=== PATIENT | female | born 1980 | race Caucasian/White ===

== ENCOUNTER 2018-04-23 12:57 | Inpatient (IN) | payer MEDICAID, OTHER ==
[~2018-04-23] VITALS: Ht 182.9 cm; Wt 76.2 kg
--- NOTE | 2018-04-23 12:57 | NUR ---
PT BIBA ALS TO BED 10
--- NOTE | 2018-04-23 13:00 | NUR ---
PT. BIB ALS DUE TO SEIZURE X 2 FROM HOME. PER REPORT FROM ALS CREW "UPON ARRIVAL TO HOME PT WAS POSTICTAL AAOX1 AND UPON TRANSPORTING TO AMBULANCE SHE HAD ANOTHER SEIZURE THAT LASTED 40 SEC". UPON ARRIVAL PT HAS HR: 135. RR EVEN AND UNLABORED R EG 18 G ESTABLISHED EN ROUTE TO HOSPITAL. PT. DOES NOT RESPOND TO PAINFUL STIMULI, NYSTAGMUS VERTICAL NOTED TO BILATERAL EYES. RR EVEN AND UNLABORED. PALE AND WARM TO TOUCH, PRANEETH CATH NOTED TO R SIDE OF CHEST, PER REPORT " CHEMOTHERAPY WAS STOPPED 3 WEEKS AGO DUE TO IT BEING INNEFECTIVE". FAMILY MEMBER STATES " SHE HAS BEEN HAVING SEIZURES ON AND OFF FOR ABOUT A COUPLE OF WEEKS NOW". SEIZURE PRECAUTIONS IMPLEMENTED, SAFETY PRECAUTIONS IMPLEMENTED. BED IN LOWEST POSITION. ER MD NOTIFIED. WILL CONTINUE TO MONITOR.
[2018-04-23 13:01] VITALS: BP 169/110
[2018-04-23] MEDS ORDERED: NACL 0.9% 1,000 ML IV SCH ×2 (13:04→19:30)
[2018-04-23] MEDS ORDERED: LORazepam 2 MG/ML VIAL IVP ONE (13:05)
[2018-04-23] MEDS ORDERED: DEXTROSE 50% 50 ML SYR IVP ONE (13:05)
[2018-04-23] MEDS ORDERED: IPRATROPIUM 0.02% 0.5 MG/2.5 ML NEBU INH ONE (13:10)
[2018-04-23] MEDS ORDERED: ALBUTEROL 0.083% 2.5 MG/3 ML NEBU INH ONE (13:10)
[2018-04-23] MEDS ORDERED: MAG SULF 2000 MG/WATER PREMIX 50 ML IV ONE (13:10)
[2018-04-23] MEDS ORDERED: methylPREDNISolone SS 125 MG/2 ML VIAL IVP ONE (13:10)
[2018-04-23] MEDS ORDERED: LORazepam 2 MG/ML VIAL ONE (13:14)
--- NOTE | 2018-04-23 13:24 | NUR ---
ADMITTING DX: SEEKING MEDICAL ATTENTION LOC NON RESPONSIVE DR ARSENIO VALERIO ADVISED OF CARDIAC STATUS OF 139-142 BPM PER OK TO GIVE HHN THERAPY ORDERED
--- NOTE | 2018-04-23 13:40 | NUR ---
RT AT BEDSIDE AT THIS TIME.
[2018-04-23] MEDS ORDERED: VITB12 PO (13:42)
[2018-04-23] MEDS ORDERED: DEC4 PO (13:42)
[2018-04-23] MEDS ORDERED: VITA1TAB44 PO (13:42)
[2018-04-23] MEDS ORDERED: BUS5 PO (13:42)
[2018-04-23] MEDS ORDERED: HYDR2TAB6 PO (13:42)
[2018-04-23] MEDS ORDERED: ATI.5 PO (13:42)
[2018-04-23] MEDS ORDERED: BUPR300T70 PO (13:42)
[2018-04-23 13:49] LABS: BASOPHILS % (AUTO) 0.1 % (0.0-2.0); HEMATOCRIT 30.4 % (36-48); LYMPHOCYTES # (AUTO) 0.3 K/uL (2.5-16.5); LYMPHOCYTES % (AUTO) 4.1 % (20.5-51.1); MEAN CORPUSCULAR HEMOGLOBIN 30 pg (27-31); MEAN CORPUSCULAR HGB CONC 33 g/dL (33-37); MEAN CORPUSCULAR VOLUME 91.6 fL (80-94); MONOCYTES # (AUTO) 0.4 K/uL (0.8-1.0); NEUTROPHILS # (AUTO) 5.7 K/uL (1.8-7.7); NEUTROPHILS % (AUTO) 88.8 % (42.2-75.2); PLATELET COUNT (AUTO) 294 K/uL (140-450); RED BLOOD CELL COUNT(AUTO) 3.32 MIL/uL (4.20-5.40); RED CELL DISTRIBUTION WIDTH 19.1 % (11.6-13.7); WHITE BLOOD COUNT (AUTO) 6.4 K/uL (4.8-10.8)
[2018-04-23 14:06] LABS: PROTHROMBIN TIME 11.3 secs (10.8-13.4)
[2018-04-23 14:11] LABS: ALBUMIN 2.9 g/dL (3.4-5.0); ANION GAP 13.1 (8-16); CARBON DIOXIDE 28.9 mmol/L (21-32); CREATININE 0.8 mg/dL (0.6-1.3); TOTAL BILIRUBIN 0.8 mg/dL (0.0-1.0)
--- NOTE | 2018-04-23 14:15 | NUR ---
PT. HAS RECTAL TEMP OF 100.5 . ER MD VALERIO NOTIFIED. ORDERS FOR 650MG SUPP. WILL CONTINUE TO MONITOR.
--- NOTE | 2018-04-23 14:20 | NUR ---
JE FROM LAB CALLED TO REPORT LACTIC ACID : [id number]. ER MD VALERIO NOTIFIED. NO FURTHER ORDERS AT THIS TIME.
[2018-04-23] MEDS ORDERED: ACETAMINOPHEN 650 MG SUPP RC ONE ×2 (14:22→14:25)
[2018-04-23 14:31] LABS: MAGNESIUM 1.2 mg/dL (1.8-2.4)
[2018-04-23 14:35] LABS: ACETONE, SERUM NEGATIVE (NEGATIVE)
--- NOTE | 2018-04-23 14:42 | NUR ---
REVIEWED BIPNICOL SINGH WITH DR ARSENIO VALERIO PER MD PATIENT OK NOW PLACE BIPAP ON HOLD
--- NOTE | 2018-04-23 14:46 | NUR ---
PT. FAMILY MEMBER AT BEDSIDE AT THIS TIME, RR EVEN AND UNLABORED. BED IN LOWEST POSITION. WILL CONTINUE TO MONITOR.
--- NOTE | 2018-04-23 14:48 | NUR ---
B/P 168/[address] VALERIO; NO FURTHER ORDERS AT THIS TIME.
--- NOTE | 2018-04-23 15:10 | NUR ---
CALLED FOR CT SCAN . TECH STATED " I SHOULD BE THERE WITHIN 10 MIN". ER MD VALERIO NOTIFIED.
--- NOTE | 2018-04-23 15:28 | NUR ---
AT THIS TIME VOCATIONAL TRAINING TEACHER HAS NOT TAKEN PATIENT FOR SCAN, CALLED AND TECH SAID " I JUST GOT BACK I WILL BE THERE IN 2 MIN ".
--- NOTE | 2018-04-23 15:38 | NUR ---
PT TAKEN TO CT IN [place]
--- NOTE | 2018-04-23 15:54 | NUR ---
PT RETURNED FROM CT
[2018-04-23 16:17] LABS: APPEARANCE,URINE CLOUDY (CLEAR); BILIRUBIN,URINE 2+ (NEGATIVE); BLOOD, URINE 3+ (NEGATIVE); COLOR,URINE YELLOW (YELLOW); LEUKOCYTE ESTERASE ,URINE 2+ (NEGATIVE); NITRITE, URINE NEGATIVE (NEGATIVE); PH,URINE 5.5 (5.0-9.0); UGLUCOSE NEGATIVE (NEGATIVE)
--- NOTE | 2018-04-23 16:21 | NUR ---
RECTAL TEMP OF 101.3, ER MD VALERIO NOTIFIED. NO ORDERS RECIEVED AT THIS TIME.
[2018-04-23 16:38] LABS: RBC,URINE 0-5 (RARE) /HPF (0-5); URINE AMORPHOUS URATE 3+ /HPF (None Seen); WBC,URINE 0-5 (RARE) /HPF (0-5)
[2018-04-23] MEDS ORDERED: DEXAMETHASONE 10 MG/ML VIAL IVP ONE (16:45)
[2018-04-23] MEDS ORDERED: FAMOTIDINE 20 MG/2 ML VIAL IVP ONE (16:45)
--- NOTE | 2018-04-23 17:53 | NUR ---
PT. RESTING COMFORTABLY IN BED, RR EVEN AND UNLABORED. FAMILY AT BEDSIDE. WILL CONTINUE TO MONITOR.
--- NOTE | 2018-04-23 18:35 | NUR ---
RECTAL TEMP OF 100.6. PT RESTING IN BED, BECOMING MORE ALERT. [facility] WILL CONTINUE TO MONITOR. SEIZURE PRECAUTIONS IN PLACE.
--- NOTE | 2018-04-23 19:07 | NUR ---
REPORT RECIEVED FROM SAAD COLON AT THIS TIME. PT IN STABLE CONDITION
[2018-04-23] MEDS ORDERED: LORazepam 2 MG/ML VIAL IVP PRN (19:30)
[2018-04-23] MEDS ORDERED: ACETAMINOPHEN 325 MG TAB PO PRN (19:30)
[2018-04-23] MEDS ORDERED: HYDROcodone/APAP 5/325 MG 1 TAB TAB PO PRN (19:30)
[2018-04-23] MEDS ORDERED: DOCUSATE SODIUM 100 MG GELCAP PO PRN (19:30)
[2018-04-23] MEDS ORDERED: ONDANSETRON 4 MG/2 ML VIAL IM/IVP PRN (19:30)
[2018-04-23] MEDS ORDERED: KETOROLAC 15 MG/ML VIAL IVP PRN (19:30)
[2018-04-23] MEDS ORDERED: POTASSIUM CHLORIDE 20% 40 MEQ/15 ML UDC PO ONE (19:40)
[2018-04-23] MEDS ORDERED: HYDROmorphone 2 MG TAB PO PRN (19:40)
--- NOTE | 2018-04-23 20:02 | NUR ---
Patient will be admitted to care of DR. ANDERSEN. Admited to TELE. Will go to room 123 A. Belongings list completed. Report to STEPHANIE COLON.
[2018-04-23 20:18] LABS: BARBITURATE, URINE NEG. ng/ml (NEG <=200); BENZODIAZEPINE, URINE NEG. ng/mL (NEG <=200); CANNABINOID, URINE NEG. ng/mL (NEG <=50); COCAINE, URINE NEG. ng/mL (NEG <=300); OPIATE, URINE NEG. ng/mL (NEG <=2000); PHENCYCLIDINE SCREEN,URINE NEG. ng/mL (NEG <=25)
[2018-04-23 20:19] LABS: PHOSPHORUS 2.6 mg/dL (2.5-4.9); THYROID STIMULATING HORMONE 1.08 uIU/mL (0.34-3.74)
--- NOTE | 2018-04-23 20:30 | NUR ---
ADMITTED PT AT THIS TIME FROM ER. RECEIVED REPORT AT PT'S BEDSIDE FROM ER NURSE. PT TRANSFERRED FROM [facility] TO BED WITH 2-PERSON EXTENSIVE ASSIST. PT LETHARGIC UPON ARRIVAL, ABLE TO FOLLOW ONE-STEP INSTRUCTIONS WITH DELAYED RESPONSE, NODS HEAD YES/NO. HX OBTAINED FROM MEDICAL RECORDS D/T PT LETHARGY. PT ORIENTED TO ROOM & UNIT, ABLE TO NOD YES/NO. FALL & SEIZURE PRECAUTIONS INITIATED. CALL LIGHT PLACED WITHIN REACH.
[2018-04-23 21:00] VITALS: BP 158/97
[2018-04-23] MEDS: busPIRone 5 MG TAB PO SCH (22:30)
[2018-04-23] MEDS ORDERED: cefTRIAXone 1,000 MG VIAL ONE (22:41)
--- NOTE | 2018-04-23 22:55 | NUR ---
PRE-MIXED ROCEPHIN WITH D5W UNAVAILABLE. ROCEPHIN VIAL OBTAINED BY CHARGE NURSE, MIXED WITH 50ML D5W, & ADMINISTERED TO PT VIA IV.
[2018-04-23] MEDS: LORazepam 0.5 MG TAB PO SCH (23:50)
[2018-04-24] VITALS: BP 171/101
--- NOTE | 2018-04-24 | NUR ---
DR. SHINE NOTIFIED OF ELEVATED BP. PER MD, POSSIBLY R/T TO PAIN. PT NOTED TO BE GRIMACING WITH MOVEMENT, BUT SHAKES HEAD "NO" WHEN ASKED IF SHE HAS PAIN. PT AGREE TO RECEIVE IV MORPHINE. FAMILY VISITING AT BEDSIDE.
[2018-04-24] MEDS: MORPHINE SULFATE 2 MG/ML SYR IVP PRN ×2 (00:52→11:53)
--- NOTE | 2018-04-24 01:00 | NUR ---
REASSESSED BP. BP CURRENTLY 158/82, P94. PT LETHARGIC, ABLE TO NOD YES/NO. NO SIGNS OF DISTRESS. CALL LIGHT WITHIN REACH.
[2018-04-24] MEDS: POTASSIUM CHL 20MEQ/D5-NS 1,000 ML IV SCH ×2 (02:32→14:49)
[2018-04-24 04:00] VITALS: BP 153/93
--- NOTE | 2018-04-24 05:10 | NUR ---
PT PULLED OUT RT EJ IV SITE. CATH INTACT. DR SHINE NOTIFIED. PER STACIA FROST TO USE RT CHEST PORT-A-CATH FOR IVF & IV MEDS. RESUMED IV INFUSION OF K20MEQ IN D5NS TO PORT-A-CATH. EDUCATED PT NOT TO PULL ON IV. PT VERBALIZED UNDERSTANDING. WILL CONTINUE TO MONITOR. Addendum: 04/24/18 at 0553 by Vannesa Thomas RN PT TRANSFERRED TO [facility] FOR BED ALARM. PT AGREE. ABLE TO AMB FROM BED TO BED WITH STANDBY ASSIST.
[2018-04-24] MEDS: LORazepam 0.5 MG TAB PO SCH ×4 (05:13→23:39)
[2018-04-24 06:35] LABS: BASOPHILS % (AUTO) 0.1 % (0.0-2.0); HEMATOCRIT 27.7 % (36-48); HEMOGLOBIN 9.4 g/dL (12.0-16.0); LYMPHOCYTES # (AUTO) 0.3 K/uL (2.5-16.5); LYMPHOCYTES % (AUTO) 4.3 % (20.5-51.1); MEAN CORPUSCULAR HEMOGLOBIN 31 pg (27-31); MEAN CORPUSCULAR HGB CONC 34 g/dL (33-37); MEAN CORPUSCULAR VOLUME 90.9 fL (80-94); MONOCYTES # (AUTO) 0.7 K/uL (0.8-1.0); MONOCYTES % (AUTO) 10.6 % (1.7-9.3); NEUTROPHILS # (AUTO) 5.8 K/uL (1.8-7.7); PLATELET COUNT (AUTO) 262 K/uL (140-450); RED BLOOD CELL COUNT(AUTO) 3.04 MIL/uL (4.20-5.40); RED CELL DISTRIBUTION WIDTH 19.4 % (11.6-13.7); WHITE BLOOD COUNT (AUTO) 6.8 K/uL (4.8-10.8)
--- NOTE | 2018-04-24 07:25 | NUR ---
REPORT GIVEN AT BEDSIDE TO AM SHIFT NURSE.
[2018-04-24 07:39] LABS: ANION GAP 13.5 (8-16); CARBON DIOXIDE 26.2 mmol/L (21-32); CREATININE 0.6 mg/dL (0.6-1.3); POTASSIUM 3.7 mmol/L (3.5-5.1)
[2018-04-24 07:44] LABS: CHOL/HDL RATIO 2.5 (1-4.5); MAGNESIUM 1.7 mg/dL (1.8-2.4); PHOSPHORUS 1.7 mg/dL (2.5-4.9)
--- NOTE | 2018-04-24 07:45 | NUR ---
PATIENT AWAKE, CONFUSED, NOT KNOWING WHY OR WHERE PATIENT IS. PATIENT WAS ORIENTED TO ROOM, AND STAFF. RESPIRATION EVEN, UNLABOR ON ROOM AIR. SKIN DRY AND WARM. MEDIPORT PATENT AND INTACT. MATTHEWS DRAINING DARK YELLOW URINE. PLAN OF CARE WAS DISCUSSED WITH PATIENT. BED AT LOW POSITIONS, SIDE RAILS UP. CALL LIGHT WITHIN REACH
[2018-04-24 08:00] VITALS: BP 159/97
[2018-04-24] MEDS: DEXAMETHASONE 4 MG TAB PO SCH (08:57)
[2018-04-24] MEDS: busPIRone 5 MG TAB PO SCH ×2 (08:57→20:36)
[2018-04-24] MEDS: LACTOBACILLUS RHAMNOSUS GG 1 EACH CAP PO SCH (08:58)
[2018-04-24] MEDS ORDERED: METOPROLOL 25 MG TAB PO SCH (09:00)
--- NOTE | 2018-04-24 09:15 | NUR ---
PATIENT HAS BEEN SCREENED AND CATEGORIZED HIGH NUTRITION RISK. PATIENT WILL BE SEEN WITHIN 1-2 DAYS OF ADMISSION. 04/24/18 04/25/[address]
--- NOTE | 2018-04-24 09:15 | NUR ---
PATIENT AWAKE, CONFUSED. RESPIRATION EVEN, UNLABOR ON ROOM AIR. NO DISTRESS NOTED. CALL LIGHT WITHIN REACH
--- NOTE | 2018-04-24 10:57 | NUR ---
CM NOTE ADMISSION CHART REVIEW DONE. INITIAL REVIEW AND ORDER TO TRANSFER TO [facility] FAXED TO [facility] [phone] PH# [phone] AND TO [facility] [phone] JONATHAN PH# [phone]. Addendum: 04/24/18 at 1125 by Mabel Baron CM LEFT VM TO [facility] DANIELLE GREENFIELD PH# [phone] AND TO [facility] CASTILLO [phone] REGARDING TRANSFER ORDER
--- NOTE | 2018-04-24 11:00 | NUR ---
DR. THOMAS WAS MADE AWARE OF PATIENT'S PHOS 1.7, AND MAG 1.7, WILL MEDICATE PER ORDER.
[2018-04-24 12:00] VITALS: BP 160/86
--- NOTE | 2018-04-24 12:00 | NUR ---
PATIENT AWAKE, STILL CONFUSED. RESPIRATION EVEN, UNLABOR ON ROOM AIR. VS IS STABLE. COMPLAINED OF GENERALIZED PAIN 7/10, WILL MEDICATE PER ORDER. PATIENT TRIED TO GET OUT OF BED TO GO URINATE, ORIENTED PATIENT THAT SHE HAS A MATTHEWS. PATIENT VERBALIZED UNDERSTANDING. BED ALARM ACTIVE. CALL LIGHT WITHIN REACH. FAMILY AT BEDSIDE
--- NOTE | 2018-04-24 13:00 | NUR ---
PATIENT ATTEMPTED TO GET OUT OF BED FOR BATHROOM. PATIENT WAS ASSISTED BY STAFF. PATIENT HAD UNSTEADY GAIT. EXPLAINED TO PATIENT THAT THE MATTHEWS IS IN PLACE, AND IT IS DRAINING WELL. INSTRUCTED PATIENT AND FAMILY TO CALL STAFF BEFORE GETTING OUT OF BED. BED ALARM IS ACTIVE. CALL LIGHT WITHIN REACH
--- NOTE | 2018-04-24 13:15 | NUR ---
8627 CALL PLACED TO [facility] [phone] AND SPOKE WITH OLESYA AT EXT [phone] REGARDING TRANSFER. OLESYA STATES SHE IS AWARE OF THE PATIENT AND WILL FAX OVER A FORM TO BE FILLED OUT WHICH WILL NEED TO INCLUDE AUTHORIZATION FROM [facility]. PER OLESYA CANNOT REQUEST A BED UNTIL AUTHORIZATION IS OBTAINED FROM [facility]. [facility] FAX [phone]
--- NOTE | 2018-04-24 13:21 | NUR ---
CM NOTE PER [facility] DANIELLE CASTILLO PH# [phone], SHE WILL WORK ON THE AUTHORIZATION FOR [facility] AND FAX IT TO THEM. SHE ALSO STATED THAT AUTHORIZATION FOR TRANSPORTATION GOING TO [facility] SHOULD COME FROM [facility]. LEFT VM TO [facility] DANIELLE GREENFIELD PH# [phone].
--- NOTE | 2018-04-24 13:30 | NUR ---
DR. THOMAS WAS MADE AWARE OF CRITICAL RESULT FOR VENOUS ULTRASOUND, AND PRESENCE OF BLOOD IN URINE. PHYSICIAN WILL BE SEEING PATIENT.
--- NOTE | 2018-04-24 14:02 | NUR ---
CM NOTE RECEIVED CALL FROM [facility] PH# [phone] STATING THAT FOR AMBULANCE MEDICAL TRANSPORT GOING TO [facility] TO CONTACT [facility]# [phone] AND NO PRIOR AUTHORIZATION IS NEEDED.
--- NOTE | 2018-04-24 14:28 | NUR ---
CM NOTE PER [facility] DANIELLE CASTILLO PH# [phone], SHE HAS ALREADY FAXED A COPY OF THE AUTHORIZATION TO [facility] FAX# [phone], REF# [id number].
--- NOTE | 2018-04-24 14:42 | NUR ---
1424 CLINICAL INFORMATION AND COPY OF AUTHORIZATION FROM [facility] FAXED TO HARJINDER SANTOS AT [facility]. PROVIDED THE DIRECT LINE TO THE NURSING UNIT [facility]. INFORMED PT THAT INFORMATION HAS BEEN FAXED AND AUTHORIZATION HAS BEEN OBTAINED AND TRANSFER WILL BE PENDING BED AVAILABILITY DR GODDARD HER ONCOLOGIST WAS CONTACTED LAST NIGHT BY ED AND HE INDICATED HE WOULD BE THE ACCEPTING PHYSICIAN,
--- NOTE | 2018-04-24 14:50 | NUR ---
PATIENT IS RESTING COMFORTABLY. RESPIRATION EVEN, UNLABOR ON ROOM AIR. NO DISTRESS NOTED AT THIS TIME. FAMILY AT BEDSIDE. CALL LIGHT WITHIN REACH
--- NOTE | 2018-04-24 15:50 | NUR ---
PATIENT AWAKE, ALERT. RESPIRATION EVEN, UNLABOR ON ROOM AIR. COMPLAINED OF GENERALIZED PAIN WHEN WALKING /10. VS IS STABLE. FAMILY AT BEDSIDE. CALL LIGHT WITHIN REACH
[2018-04-24 16:00] VITALS: BP 152/87
[2018-04-24] MEDS ORDERED: MAG SULF 2000 MG/WATER PREMIX 50 ML IV SCH (16:00)
[2018-04-24] MEDS ORDERED: SODIUM PHOS / POTASSIUM PHOS 1 PKT PDR PO SCH (16:00)
[2018-04-24] MEDS ORDERED: RIVA15TA1 PO (16:33)
[2018-04-24] MEDS ORDERED: METO25TA PO (16:33)
--- NOTE | 2018-04-24 16:50 | NUR ---
PATIENT COMPLAINED OF GENERALIZED PAIN THAT WAS NOT RELIEVED WITH DILAUDID. DR. THOMAS WAS MADE AWARE. WILL MEDICATE PER ORDER
[2018-04-24] MEDS ORDERED: HYDROmorphone 2 MG TAB PO SCH (17:04)
--- NOTE | 2018-04-24 17:55 | NUR ---
PATIENT AWAKE, ALERT. RESPIRATION EVEN, UNLABOR ON ROOM AIR. NO DISTRESS NOTED AT THIS TIME. MEDIPORT PATENT AND INTACT. FAMILY AT BEDSIDE. CALL LIGHT WITHIN REACH
--- NOTE | 2018-04-24 19:28 | NUR ---
RECEIVED REPORT FROM DAY SHIFT NURSE AT PT BEDSIDE. PT IN STABLE CONDITION. FAMILY IS AT BEDSIDE. PT IS A/O X4 SKIN IS INTACT. PT HAS PORT-A-CATH WITH IVF RUNNING PER MD ORDERS. PT IS C/O PAIN WILL MEDICATE. BED IS LOCKED, LOW POSITION AND SIDE RAILS UP X2. BOARD UPDATED. CALL LIGHT IS WITHIN REACH. WILL CONTINUE TO MONITOR PT.
--- NOTE | 2018-04-24 19:28 | NUR ---
ENDORSEMENT GIVEN TO THE SYNCHRONIZER NURSE. PATIENT IS STABLE AT THIS TIME
[2018-04-24 20:00] VITALS: BP 167/100
[2018-04-24] MEDS: RIVAROXABAN 15 MG TAB PO SCH (20:37)
[2018-04-24] MEDS: METOPROLOL 25 MG TAB PO SCH (20:38)
--- NOTE | 2018-04-24 20:41 | NUR ---
ADMINISTERED SCHEDULED MEDICATIONS. PT C/O PAIN DILAUDID GIVEN. ASSISTED PT OUT OF BED AND TO BATHROOM. PT TOLERATED WELL. WILL CONTINUE TO MONITOR.
--- NOTE | 2018-04-24 20:45 | NUR ---
EDUCATED PT AND PT FAMILY ON NOT ASSISTING PT OUT OF BED. IF PT NEEDS TO GET UP, INFORMED PT AND FAMILY, TO CALL FOR NURSE ASSISTANCE. VERBALIZED UNDERSTANDING. WILL CONTINUE TO MONITOR.
[2018-04-24] MEDS ORDERED: HYDROmorphone 2 MG TAB PO PRN (21:00)
--- NOTE | 2018-04-24 22:00 | NUR ---
PT REQUESTED HEATING PAD FOR ABDOMEN. PER MD ORDERS, HEATING PAD PLACED ON PT ABDOMEN. PT TOLERATING WELL. WILL CONTINUE TO MONITOR.
[2018-04-24] MEDS: HYDROmorphone 2 MG TAB PO PRN (23:39)
--- NOTE | 2018-04-24 23:39 | NUR ---
SCHEDULED MEDICATION ADMINISTERED. PT C/O PAIN DILAUDID GIVEN. PT TOLERATED WELL. WILL CONTINUE TO MONITOR.
[2018-04-25] VITALS: BP 151/81
--- NOTE | 2018-04-25 02:02 | NUR ---
PT ASLEEP IN BED. NO SIGNS OR SYMPTOMS OF DISTRESS. WILL CONTINUE TO MONITOR.
[2018-04-25 04:00] VITALS: BP 150/84
[2018-04-25] MEDS: POTASSIUM CHL 20MEQ/D5-NS 1,000 ML IV SCH ×2 (04:27→15:30)
[2018-04-25] MEDS: HYDROmorphone 2 MG TAB PO PRN ×4 (04:28→17:03)
--- NOTE | 2018-04-25 04:28 | NUR ---
NEW BAG OF IVF STARTED. PT C/O PAIN. DILAUDID GIVEN. WILL CONTINUE TO MONITOR PT.
[2018-04-25] MEDS: LORazepam 0.5 MG TAB PO SCH (05:24)
--- NOTE | 2018-04-25 05:24 | NUR ---
ADMINISTERED SCHEDULED MEDICATION. PT TOLERATED WELL. WILL CONTINUE TO MONITOR.
--- NOTE | 2018-04-25 07:28 | NUR ---
ENDORSED PT TO DAY SHIFT NURSE FOR CONTINUITY OF CARE. PT IN STABLE CONDITION.
--- NOTE | 2018-04-25 07:29 | NUR ---
RECEIVED PT FROM NOC SHIFT,ALERT,O X3, IN BED SUPINE, RESTING, NO SIGNS OF DISTRESS, RESPIRATIONS EVEN AND UNLABORED, SKIN WARM, INTACT, COLOR WNL
[2018-04-25 08:00] VITALS: BP 149/88
[2018-04-25] MEDS ORDERED: HYDROCHLOROTHIAZIDE 25 MG TAB PO SCH (09:00)
[2018-04-25] MEDS ORDERED: levETIRAcetam 500 MG TAB PO SCH (09:00)
[2018-04-25] MEDS: DEXAMETHASONE 4 MG TAB PO SCH (09:00)
[2018-04-25] MEDS: METOPROLOL 25 MG TAB PO SCH (09:30)
[2018-04-25] MEDS: LACTOBACILLUS RHAMNOSUS GG 1 EACH CAP PO SCH (09:30)
[2018-04-25] MEDS: busPIRone 5 MG TAB PO SCH (09:31)
[2018-04-25] MEDS: RIVAROXABAN 15 MG TAB PO SCH (09:36)
--- NOTE | 2018-04-25 09:38 | NUR ---
AM MEDS GIVEN.PT SWALLOWS SMALL PILLS WITHOUT PROBLEMS. NO COMPLAINTS OF PAIN OR ANY NEEDS AT THIS TIME. PT'S FATHER AND FRIEND AT BEDSIDE.
--- NOTE | 2018-04-25 09:50 | NUR ---
PT COMPLAINED OF DIZZINESS AND PAIN () ON PELVIC AREA VERBALIZED. BP TAKEN SLIGHTLY ELEVATED, HEAD OF THE BED TURNED DOWN, WITH SOME ALLEVIATION VERBALIZED. GAVE HYDROMORPHONE 2 TABS (4MG) ORALLY, WILL CONTINUE TO MONITOR
--- NOTE | 2018-04-25 10:17 | NUR ---
CM NOTE PER WALTER OF [facility] ADMITTING PH# [phone] THEY HAVE RECEIVED THE COPY OF THE AUTHORIZATION BUT NO BED AVAILABLE AT THIS TIME. SHE ALSO SAID THAT THEY ARE ANTICIPATING DISCHARGES TODAY AND WILL KNOW BY 1600 TIME TODAY IF THERE WILL BE A BED AVAILABLE. PROVIDED DIRECT LINE TO THE NURSING UNIT [place]. ESTRADA RN AWARE. CONCURRENT REVIEW FAXED TO [facility] [phone] PH# [phone] AND TO [facility] [phone] JONATHAN PH# [phone].
[2018-04-25] MEDS ORDERED: KEP500 PO (11:31)
[2018-04-25] MEDS ORDERED: HYDR2TAB6 PO (11:31)
--- NOTE | 2018-04-25 11:32 | NUR ---
CELINA BISHOP [facility] [phone] CALLED, PER KIRILL, SOMEONE FROM THE EPISCOPAL WILL VISIT PATIENT LATER TODAY.
[2018-04-25 12:03] VITALS: BP 142/87
[2018-04-25 12:32] LABS: EOSINOPHILS % (AUTO) 0.1 % (0.0-4.0); HEMATOCRIT 26.8 % (36-48); LYMPHOCYTES # (AUTO) 0.5 K/uL (2.5-16.5); LYMPHOCYTES % (AUTO) 7.8 % (20.5-51.1); MEAN CORPUSCULAR HEMOGLOBIN 31 pg (27-31); MEAN CORPUSCULAR HGB CONC 34 g/dL (33-37); MEAN CORPUSCULAR VOLUME 90.7 fL (80-94); MONOCYTES # (AUTO) 0.6 K/uL (0.8-1.0); MONOCYTES % (AUTO) 8.9 % (1.7-9.3); NEUTROPHILS # (AUTO) 5.4 K/uL (1.8-7.7); NEUTROPHILS % (AUTO) 83.2 % (42.2-75.2); PLATELET COUNT (AUTO) 258 K/uL (140-450); RED BLOOD CELL COUNT(AUTO) 2.95 MIL/uL (4.20-5.40); RED CELL DISTRIBUTION WIDTH 19.7 % (11.6-13.7); WHITE BLOOD COUNT (AUTO) 6.4 K/uL (4.8-10.8)
[2018-04-25 12:55] LABS: ANION GAP 9.4 (8-16); CARBON DIOXIDE 27.5 mmol/L (21-32); CREATININE 0.5 mg/dL (0.6-1.3); POTASSIUM 3.9 mmol/L (3.5-5.1)
[2018-04-25 12:59] LABS: MAGNESIUM 1.6 mg/dL (1.8-2.4); PHOSPHORUS 1.1 mg/dL (2.5-4.9)
--- NOTE | 2018-04-25 13:44 | NUR ---
PT C/O OF 03/14 PAIN .DILAUDID ADMINISTERED. PT TOLERATED SMALL PILLS ONE AT TIME. WILL CONTINUE TO MONITOR
--- NOTE | 2018-04-25 15:40 | NUR ---
04/25/18 RD INITIAL ASSESSMENT COMPLETED PLEASE REFER TO NUTRITION ASSESSMENT UNDER CARE ACTIVITY FOR ESTIMATED NUTRITIONAL NEEDS. 1. CONTINUE REGULAR PUREE DIET TOLERATED 2. PROVIDED NUTRITIONAL HANDOUT FOR INCREASING CALORIE INTAKE. 3. RD TO FOLLOW-UP 2-3 DAYS, HIGH RISK KEMAR JIN, DIPESH
[2018-04-25 16:00] VITALS: BP 150/101
--- NOTE | 2018-04-25 16:08 | NUR ---
PER [facility] ADMITTING [facility], PT TO GO TO ROOM 8631 AFTER 5PM, ACCEPTING DOCTOR RUPESH, NUMBER TO CALL REPORT [phone] EX [phone]. PT AND FAMILY MADE AWARE OF PLAN, CHARGE NURSE TO ARRANGE TRANSPORTATION.
--- NOTE | 2018-04-25 17:00 | NUR ---
ARRANGED TRANSPORT WITH [facility] TO [facility] ARRANGED TO 1730 BUT STACEY STATED SINCE THIS IS NOT EMERGENCY THERE WILL BE A 4 HR WINDOW .CONFIRMATION NUMBER IS [id number]. NOTIFIED PATIENT AND FAMILY AND NURSE ESTRADA.
--- NOTE | 2018-04-25 17:00 | NUR ---
PT C/O OF GENERALIZED PAIN 02/11, GRIMACING, ADMINISTERED DILAUDID AT 1708. WILL CONTINUE TO MONITOR FOR PAIN & OTHER SONIA
--- NOTE | 2018-04-25 17:20 | NUR ---
DISCHARGE INSTRUCTIONS GIVEN AND EXPLAINED TO PT'S , AWAITING [facility] FOR TRANSFER TO [facility]. ETA [phone].PT AND FAMILY AWARE OF THE PLAN
--- NOTE | 2018-04-25 18:48 | NUR ---
PATRICIA HERE FOR DIRECTOR INTERNATIONAL.REPORT GIVEN TO RERE TO [facility] VIA PATRICIA BEARD. Addendum: 04/25/18 at 1849 by Ratna Henderson RN ALL BELONGINGS TAKEN HOME BY FAMILY MEMBERS
== END 2018-04-25 18:50 | disposition short-term general hospital (02) | DRG 720 ==
LOC: MED 12:57 → MTU 19:37
PROVIDERS: ADMIT General Practice; ATTEND General Practice
DX: A41.9 Sepsis, unspecified organism (principal); N17.0 Acute kidney failure with tubular necrosis; G93.40 Encephalopathy, unspecified; E44.0 Moderate protein-calorie malnutrition; I82.411 Acute embolism and thrombosis of right femoral vein; E83.42 Hypomagnesemia; C78.5 Secondary malignant neoplasm of large intestine and rectum; C78.00 Secondary malignant neoplasm of unspecified lung; C79.31 Secondary malignant neoplasm of brain; M84.58XA Pathological fracture in neoplastic disease, other specified site, initial encounter for fracture; C79.51 Secondary malignant neoplasm of bone; R56.9 Unspecified convulsions; R65.20 Severe sepsis without septic shock; N39.0 Urinary tract infection, site not specified; E87.6 Hypokalemia; I10 Essential (primary) hypertension; F32.9 Major depressive disorder, single episode, unspecified; I82.431 Acute embolism and thrombosis of right popliteal vein; C80.1 Malignant (primary) neoplasm, unspecified; D63.8 Anemia in other chronic diseases classified elsewhere; Z79.899 Other long term (current) drug therapy; Z90.49 Acquired absence of other specified parts of digestive tract; Z92.21 Personal history of antineoplastic chemotherapy; Z68.22 Body mass index [BMI] 22.0-22.9, adult
CPT/HCPCS: 36415; 70450; 71045; 80048; 80053; 80305; 81001; 81025; 82009; 82550; 82948; 83036; 83605; 83735; 83874; 84100; 84134; 84443; 84484; 85025; 85610; 85730; 87040; 87081; 87086; 93005; 93970; 94640; 96365; 96366; 96375; 99285; J0696; J1100; J1644; J2060; J2270; J2930; J3475; J3490; J7030; J7060; J7613; J7644; Q0092